=== PATIENT | female | born 1990 | race Caucasian/White ===

== ENCOUNTER 2020-06-09 15:34 | Emergency (ER) | payer SELFPAY ==
[~2020-06-09] VITALS: Ht 157.5 cm; Wt 49.4 kg
--- NOTE | 2020-06-09 15:42 | NUR ---
TRIAGE: PT HAS TWO WEEK HISTORY SOB, COUGH, BODY ACHES. WENT TO DR SHOBHA TURNER TODAY FOR THIS AND FOUND TO BE 84% ON RA, SENT HER HERE.
--- NOTE | 2020-06-09 15:54 | NUR ---
SCIENTIFIC ADVISOR: PT TO ROOM FROM TRIAGE, GAIT STEADY
[2020-06-09] MEDS ORDERED: PLEASE ENTER ALLERGIES MC SCH (16:30)
--- NOTE | 2020-06-09 16:37 | NUR ---
PT STATES THAT SHE HAS HAD A COUGH FOR TWO WEEKS AND A PEREZ. WENT TO DOCTOR TODAY AND SENT TO ER BECAUSE SHE WAS HYPOXIC.
[2020-06-09 16:39] LABS: BASOPHILS % (AUTO) 1 % (0-1); EOSINOPHILS % (AUTO) 2 % (1-7); LYMPHOCYTES % (AUTO) 32 % (22-44); MEAN CORPUSCULAR HEMOGLOBIN 30.3 pg (27.0-34.8); MEAN CORPUSCULAR HGB CONC 34.1 g/dL (32.4-35.8); MEAN PLATELET VOLUME 7.3 fL (7.4-10.4); MONOCYTES % (AUTO) 8 % (2-9); NEUTROPHILS % (AUTO) 58 % (42-75); PLATELET COUNT 316 x10^3/uL (130-400); RED BLOOD COUNT 5.46 x10^6/uL (3.82-5.3)
[2020-06-09] MEDS ORDERED: ALBUTEROL/IPRATROPIUM 2.5MG/0.5MG, 3 ML ONE ×2 (16:39→17:36)
[2020-06-09] MEDS ORDERED: methylPREDNISolone SOD SUCC 125 MG/2 ML ONE (16:39)
[2020-06-09 16:40] LABS: MD NO
[2020-06-09 16:49] LABS: ALBUMIN 4.3 g/dL (3.4-5.0); ANION GAP 3 mmol/L (5-15); CALCIUM 9.2 mg/dL (8.5-10.1); CHLORIDE 106 mmol/L (98-107); CREATININE 0.79 mg/dL (0.55-1.02)
[2020-06-09] MEDS: ALBUTEROL/IPRATROPIUM 2.5MG/0.5MG, 3 ML NPPB SCH ×2 (16:53→17:38)
[2020-06-09] MEDS ORDERED: SODIUM CHLORIDE 0.9% 1,000ML IVBOLUS ONE (17:00)
[2020-06-09] MEDS ORDERED: methylPREDNISolone SOD SUCC 125 MG/2 ML IV ONE (17:00)
--- NOTE | 2020-06-09 17:05 | NUR ---
MEDICATED NOTED ON MAR WITH IV FLUIDS INFUSING AND PT GIVEN NEBULIZED TREATMENT.
[2020-06-09 17:56] VITALS: BP 119/59
--- NOTE | 2020-06-09 17:56 | NUR ---
SECOND DUONEB COMPLETED AND PT STATES SHE FELT THINGS LOOSEN UP IN CHEST.
--- NOTE | 2020-06-09 18:03 | NUR ---
AMBULATED SHORT DISTANCE. PT TOLERATED WELL. OXYGEN SATURATION 88 PERCENT UPON RETURN TO [facility] AND THEN RETURNED TO 95 PERCENT. MD AT BEDSIDE EXAMINING PT
== END 2020-06-09 18:34 | disposition home or self-care (01) ==
LOC: ED 18:28
DX: J98.01 Acute bronchospasm (principal); R06.02 Shortness of breath; R06.00 Dyspnea, unspecified; R05 Cough
CPT/HCPCS: 36415; 71045; 80048; 82040; 85025; 93005; 94640; 96361; 96374; 99285; J2930; J7030